=== PATIENT | male | born 1955 | race Caucasian/White ===

== ENCOUNTER 2019-09-26 10:36 | Day surgery (SDC) | payer OTHER ==
[~2019-09-26] VITALS: Ht 170.2 cm; Wt 99.9 kg
[2019-09-26 11:10] VITALS: BP 153/82
[2019-09-26] MEDS ORDERED: LACTATED RINGERS 1,000 ML IV SCH (11:13)
[2019-09-26] MEDS ORDERED: MESA1.2T PO (11:14)
[2019-09-26] MEDS ORDERED: OMEG1CAP23 PO (11:14)
[2019-09-26] MEDS ORDERED: OMEP-110 PO (11:14)
[2019-09-26] MEDS ORDERED: ACET-1600 PO (11:14)
[2019-09-26] MEDS ORDERED: ASCO100018 PO (11:14)
[2019-09-26] MEDS ORDERED: CHOL10003 PO (11:14)
[2019-09-26] MEDS ORDERED: potassium PO (11:14)
[2019-09-26] MEDS ORDERED: FOLI0.8T2 PO (11:14)
[2019-09-26] MEDS ORDERED: OLIV250C PO (11:14)
[2019-09-26] MEDS ORDERED: ZINC50CA PO (11:14)
[2019-09-26 11:16] VITALS: BP 153/82
[2019-09-26] MEDS ORDERED: CHLORHEXIDINE 15 ML UDC MM ONE (11:30)
[2019-09-26] MEDS ORDERED: PROPOFOL 50 ML ONE (13:04)
[2019-09-26] MEDS ORDERED: LORazepam 2 MG/ML, 1ML ONE (15:18)
[2019-09-26] MEDS ORDERED: morphine SULFATE 10 MG/ML, 1ML ONE (15:18)
[2019-09-26] MEDS ORDERED: FENTANYL PF 100 MCG/2ML ONE (15:18)
== END 2019-09-26 15:30 | disposition home or self-care (01) ==
LOC: OUT 10:36
PROVIDERS: ATTEND Internal Medicine Gastroenterology
DX: K31.89 Other diseases of stomach and duodenum (principal); Z11.59 Encounter for screening for other viral diseases; K25.9 Gastric ulcer, unspecified as acute or chronic, without hemorrhage or perforation; K29.80 Duodenitis without bleeding; K51.90 Ulcerative colitis, unspecified, without complications; G47.30 Sleep apnea, unspecified; E66.9 Obesity, unspecified; Z68.36 Body mass index [BMI] 36.0-36.9, adult; Z79.899 Other long term (current) drug therapy; Z87.891 Personal history of nicotine dependence
CPT/HCPCS: 36415; 43239; 43242; 87635; 88172; 88173; 88177; 88305; 93005; J2704; J7120; 88342